=== PATIENT | female | born 1995 | race Caucasian/White ===

== ENCOUNTER 2016-08-11 20:24 | Emergency (ER) | payer SELFPAY ==
[~2016-08-11] VITALS: Ht 167.6 cm; Wt 77.6 kg
[2016-08-11 20:50] VITALS: BP 123/70
--- NOTE | 2016-08-11 23:48 | NUR ---
PT TAKEN T BED 2 Addendum: 08/11/16 at 2348 by LYNDA PT TAKEN TO BED 2
--- NOTE | 2016-08-11 23:54 | NUR ---
20 Y/O HERE W/C/O R ABD PAIN, NV/D X 2 DAYS. DENIES ANY FEVER. NO S/S OF DISTRESS NOTED AT THE MOMENT. ER AWARED.
[2016-08-12 00:12] VITALS: BP 118/68
--- NOTE | 2016-08-12 00:12 | NUR ---
Patient discharged BY DR COLMENARES with v/s stable. Written and verbal after care instructions given and explained BY ER MD. Patient alert, oriented and verbalized understanding of instructions. Ambulatory with steady gait. All questions addressed prior to discharge. ID band removed. Patient advised to follow up with PMD, OR RETURT TO ER IF CONDITION WORSENS. Rx of BACTRIM given. Patient educated on indication of medication including possible reaction and side effects. Opportunity to ask questions provided and answered.
== END 2016-08-12 00:12 | disposition home or self-care (01) ==
LOC: MED 20:24
DX: A09 Infectious gastroenteritis and colitis, unspecified (principal); Z32.02 Encounter for pregnancy test, result negative
CPT/HCPCS: 81025; 99283